=== PATIENT | female | born 1985 | race Caucasian/White ===

== ENCOUNTER 2019-03-13 06:04 | Inpatient (IN) ==
[2019-03-13] MEDS ORDERED: PENICILLIN G POTASSIUM 5 MILLIONUNT in DEXTROSE 5 % IN WATER 100 ML IV ONE ×2 (06:14)
[2019-03-13] MEDS ORDERED: RINGER'S SOLUTION,LACTATED 1,000 ML IV ONE (06:14)
[2019-03-13] MEDS ORDERED: OXYTOCIN/DEXTROSE 5%-WATER 30 UNITS/500 ML BAG IV ONE (06:14)
[2019-03-13] MEDS ORDERED: LIDOCAINE HCL 50 ML VIAL PERI PRN (06:14)
[2019-03-13] MEDS ORDERED: NALBUPHINE HCL 10 MG/ML AMPUL IV PRN ×2 (06:14)
[2019-03-13] MEDS ORDERED: ONDANSETRON 4 MG TAB.RAPDIS PO PRN (06:14)
[2019-03-13 06:55] LABS: Cocaine Ur Negative (NEGATIVE); Urine Barbiturate Negative (NEGATIVE); Urine Benzodiazepines Negative (NEGATIVE); Urine Opiates Negative (NEGATIVE); Urine PCP Negative (NEGATIVE); Urine THC Negative (NEGATIVE)
[2019-03-13] MEDS: RINGER'S SOLUTION,LACTATED 1,000 ML IV PRN ×3 (07:31→22:40)
--- NOTE | 2019-03-13 08:22 | HP ---
Chief Complaint - Chief Complaint Date of Service: 03/13/19 Time of Service: 08:16 Chief Complaint: Labor induction History of Present Illness: The patient is a 33 year old @ 39w 0d who presents to labor and delivery for an elective IOL. She denies vb or lof. Fetus is active. Medical History (Updated 03/03/19 @ 15:57 by Glo Sandoval MD) Depression GERD (gastroesophageal reflux disease) Genital herpes Migraine headache with aura Sleep disorder Abnormal Pap smear of cervix IUD migration Onset Date: ~02/24/14 removal of migrated IUD Seizure disorder during , Surgical History: Surgical History (Updated 08/14/18 @ 15:44 by Geni Arellano LPN) History of colposcopy Onset Date: ~05/02/16 05/02/16, 05/25, 11/23 History of dilation and curettage Onset Date: ~02/24/14 History of hysteroscopy Onset Date: ~02/24/14 History of surgery on arm Onset Date: ~1995 Family History: Family History (Updated 08/14/18 @ 15:47 by Geni Arellano LPN) Mother Hypothyroidism Father Diabetes Grandmother Breast cancer Social History: (Last Updated 03/10/19 @ 16:01 by Glo Sandoval MD) Social History: Marital status: Single household members: significant other, children current occupational status: employed current occupation: [employer] current occupational exposures/hazards: No Highest education level completed: some college, no degree Service: No Tobacco: Smoking Status: Never smoker Alcohol: alcohol intake: former Substance Use: substance use type: does not use Dietary Habits: caffeine: Yes caffeine comment: 1 daily Type: carbonated beverages Review Of Systems (GEN) - Review of Systems Generalized/Overall Review: Present: No Symptoms Reported Misc: All systems neg except as marked Immunizations: IMMUNIZATION HX Immunizations Up to Date Yes History of Influenza Vaccine No Hx Pneumococcal Vaccination No Allergies/Adverse Reactions: Allergies Allergy/AdvReac Type Severity Reaction Status Date / Time acetaminophen [From Vicodin] AdvReac Mild Nausea Verified 03/10/19 15:35 hydrocodone bitartrate AdvReac Mild Nausea Verified 03/13/19 06:16 [From Vicodin] Exam - Exam Vital Signs: 35.7 Celcius 80 16 123/75 98% RA Constitutional: Present: Alert, Oriented x3, Cooperative, No distress Respiratory: Present: lungs clear, normal breath sounds Cardiovascular/Chest: Present: regular rate, rhythm, no murmur Abdomen: Present: soft, nontender, nondistended Extremity: Present: non-tender, no calf tenderness Skin Exam: Present: normal color, warm/dry, no cyanosis Appearance: Present: appropriate appearance Eye contact: Present: cooperative Thoughts: Present: normal thought pattern Diagnostic Studies: Laboratory Results Negative (NEGATIVE) 03/13/19 06:34 Negative (NEGATIVE) 03/13/19 06:34 Ur Phencyclidine Scrn Negative (NEGATIVE) 03/13/19 06:34 Urine Amphetamine Negative (NEGATIVE) 03/13/19 06:34 U Benzodiazepines Scrn Negative (NEGATIVE) 03/13/19 06:34 Negative (NEGATIVE) 03/13/19 06:34 Negative (NEGATIVE) 03/13/19 06:34 Blood Type B Positive 03/13/19 06:20 Antibody Screen Negative 03/13/19 06:20 Assessment/Plan - Narrative Narrative: 33 year old @ 39w 0d here for elective IOL Pitocin started. AROM when able GBS bacteriuria: intrapartum GBS prophylaxis
[2019-03-13] MEDS: PENICILLIN G POTASSIUM 2.5 MILLIONUNT in DEXTROSE 5 % IN WATER 100 ML IV SCH ×8 (11:26→23:34)
[2019-03-13] MEDS ORDERED: ONDANSETRON HCL/PF 2 MG/ML VIAL IV PRN (11:46)
[2019-03-13] MEDS ORDERED: NALOXONE HCL 1 MG/1 ML SYRG IV PRN (11:46)
[2019-03-13] MEDS ORDERED: fentaNYL CITRATE/PF 50 MCG/ML AMPUL IT SCH (12:00)
--- NOTE | 2019-03-13 12:54 | ANES ---
Anesthesia Pre Procedure Eval Vitals/Labs: Last Vital Signs Temp 36.2 C 03/13/19 11:44 Pulse 88 03/13/19 11:44 Resp 16 03/13/19 11:44 BP 128/77 03/13/19 11:44 Pulse Ox 99 03/13/19 11:44 Allergies/Adverse Reactions: Allergies Allergy/AdvReac Type Severity Reaction Status Date / Time acetaminophen [From Vicodin] AdvReac Mild Nausea Verified 03/10/19 15:35 hydrocodone bitartrate AdvReac Mild Nausea Verified 03/13/19 06:16 [From Vicodin] - Planned Procedure Planned Procedure: ELECTIVE INDUCTION/39 WEEKS Medication List Reviewed:: Yes Allergies Verified: Yes Medical History (Updated 03/13/19 @ 08:22 by Glo Sandoval MD) Depression GERD (gastroesophageal reflux disease) Genital herpes Migraine headache with aura Sleep disorder Abnormal Pap smear of cervix IUD migration Onset Date: ~02/24/14 removal of migrated IUD Seizure disorder during , Surgical History (Updated 03/13/19 @ 08:22 by Glo Sandoval MD) History of colposcopy Onset Date: ~05/02/16 05/02/16, 05/25, 11/23 History of dilation and curettage Onset Date: ~02/24/14 History of hysteroscopy Onset Date: ~02/24/14 History of surgery on arm Onset Date: ~1995 Family History (Updated 08/14/18 @ 15:47 by Geni Arellano LPN) Mother Hypothyroidism Father Diabetes Grandmother Breast cancer - Family Anesthesia History Family History:: no untoward family reactions to anesthesia, no familial bleeding tendencies, no family history of clotting disorders, no family history of premature - Airway/Neck/Teeth Within Normal Limits:: Yes Teeth Condition: intact Neck Exam: full range of motion Mallampatti Score: 2 Thyromental (T-M) distance: > 6 cm Mandibulo Hyoid distance: > 3 cm - Respiratory Respiratory Physical: lungs clear Smoking Status: Never smoker Sleep Apnea currently treated: No Sleep Apnea by current assessment: No - Cardiovascular Tolerate Activity: Fair Heart Sounds: S1 & S2 - Anesthesia Assessment and Plan ASA Class: PS, II, E Anesthesia Type Plan: Epidural - CSE for labor analgesia
--- NOTE | 2019-03-13 13:14 | ANES ---
Post Anesthesia Discharge - Transfer of Care Transfer of Care handoff given to nurse: Yes - Discharge from PACU Discharge from PACU when meets criteria: Yes - Comfortable in ASU.
--- NOTE | 2019-03-13 13:15 | ANES ---
Anesthesia Procedure Note Procedure Note: ANESTHESIA PROCEDURE NOTE Date of Procedure: [03/13/2019 Time of procedure: 12:50 PM. Performed by: MAYURI Laboy CRNA, MSN Scrub Nurse: Diya Moore RN. Preprocedure diagnosis: Active labor, labor pain. Post procedure diagnosis: Same. Procedure:Epidural for labor analgesia L3-4. Indications: Labor pain. Findings: See below. Details of the procedure: The patient was placed on the side of the bed in sitting positionand prepped with DuraPrep then draped in a sterile fashion. Lidocaine 1% was infiltrated to the skin and subcutaneous tissues at the level of the L3-4 interspace. An 18-gauge Touhy needle was used to approach the epidural space with loss of resistance technique. Once loss of resistance was achieved a 27-gauge spinal needle was passed through the epidural needle and CSF was contacted. After CSF returned, 20 mcg of fentanyl was injected in the spinal needle was removed the epidural catheter was then threaded approximately 4 cm in the epidural needle was removed. The catheter was taped in place and after careful aspiration 3 mL of 1.5% lidocaine with 1-200,000 epinephrine was injected without change in maternal heart rate or sensorium. . EBL: Minimal. Fluids: N/A. Specimen: N/A. Post procedure condition: The patient tolerated the procedure well with good relief. No complications were noted. Thank you for this consultation. Niko Jurado CRNA, MAYURI, MSN
--- NOTE | 2019-03-13 13:26 | ANES ---
Post Anesthesia Assessment - Vital Signs Vitals: Last Vital Signs Temp 36.2 C 03/13/19 11:44 Pulse 88 03/13/19 11:44 Resp 16 03/13/19 11:44 BP 128/77 03/13/19 11:44 Pulse Ox 99 03/13/19 11:44 Airway Patency: Normal - Mental Status Level Of Consciousness: Awake, Alert, Appropriate - Pain Level Pain Score: 0 - N/V Assessment Nausea/Vomiting Presence: None Dehydration:: No
[2019-03-13] MEDS: BUPIVACAINE HCL/0.9 % NACL/PF 250 ML EP PRN ×2 (13:38→23:56)
--- NOTE | 2019-03-13 17:49 | PN ---
Progess Note - Interim Date: 03/13/19 Time: 17:47 Narrative: 03/13/19 17:47 Patient comfortable with epidural cvx is 3.5-4/60/-2 AROM for clear fluid ctx q 2-4 minutes FHT cat 1 Pitocin currently at 12 milliunits/min
[2019-03-14] MEDS ORDERED: MISOPROSTOL 200 MCG TABLET RC ONE (02:39)
[2019-03-14] MEDS ORDERED: OXYTOCIN/DEXTROSE 5%-WATER 30 UNITS/500 ML BAG IV ONE (03:28)
[2019-03-14] MEDS ORDERED: HYDROCORTISONE 30 APPL TUBE TP PRN (03:28)
[2019-03-14] MEDS ORDERED: BENZOCAINE/MENTHOL 81 SPRAY CAN TP PRN (03:28)
[2019-03-14] MEDS ORDERED: IBUPROFEN 800 MG TABLET PO PRN (03:28)
[2019-03-14] MEDS ORDERED: diphenhydrAMINE HCL 25 MG CAPSULE PO PRN (03:28)
[2019-03-14] MEDS ORDERED: oxyCODONE HCL/ACETAMINOPHEN 1 TAB TABLET PO PRN (03:28)
[2019-03-14] MEDS ORDERED: GLYCERIN/WITCH HAZEL LEAF 40 APPL BOX TP PRN (03:28)
[2019-03-14] MEDS ORDERED: SENNOSIDES 8.6 MG TABLET PO PRN (03:28)
[2019-03-14] MEDS ORDERED: BISACODYL 10 MG SUPP.RECT RC PRN (03:28)
--- NOTE | 2019-03-14 03:28 | OR ---
Operative Report - Dictated Report Narrative: Date of delivery: 03/14/2019 Time of delivery: 233 Gender: male APGARS: 8/9 weight: 4149 grams Procedure: VAVD Description of the procedure: The patient presented to L&D for an elective IOL. She progressed to complete dilation. She delivered a viable male on the direct OA position. It was a vacuum assisted delivery. There was only one pop off the vacuum. The total application time for the vacuum was There was a loose nuchal cord which was reduced. The shoulders delivered without difficulty followed by the rest of the body. The cord was clamped and cut. The placenta was delivered by expression and appeared intact. Following delivery of the placenta, heavy vaginal bleeding ensued. The patient received cytotec, methergine, and hemabate. A Lau catheter was placed in the uterus and 60 mL of saline were injected. The Lau was connected to a bag. A Lau catheter was placed in the bladder. EBL was 1000 mL. The patient is tachycardic and thus 2 units of PRBCs were ordered. A second degree perineal laceration was repaired in the standard fashion using 2-0 vicryl. EBL: 1000 mL Lacerations: 2nd degree perineal laceration Complications: none History for MU Definition: * The number of deliveries resulting in a live the patient experienced prior to current hospitalization * The previous delivery of live twins or any live multiple gestation is considered one live event. *If primagravida or nulliparous is documented select zero for the number of previous live births. Live Events: 2
[2019-03-14] MEDS ORDERED: METHYLERGONOVINE MALEATE 0.2 MG/ML AMPUL IM ONE (03:57)
[2019-03-14] MEDS ORDERED: CARBOPROST TROMETHAMINE 250 MCG/ML AMPUL IM ONE (03:58)
[2019-03-14] MEDS ORDERED: ceFAZolin SODIUM/DEXTROSE,ISO 2 GM/50 ML BAG IV SCH (04:15)
[2019-03-14] MEDS: oxyCODONE HCL/ACETAMINOPHEN 1 TAB TABLET PO PRN ×3 (05:18→21:59)
[2019-03-14 09:05] LABS: Hematocrit 31.2 % (37.0-47.0); Hemoglobin 10.2 gm/dL (12.5-16.0); Mean Cell Volume 78.8 fl (78-100); Mean Corpuscular Hemoglobin 25.8 pg (27-31); Mean Corpuscular Hgb Conc 32.7 g/dl (32-36); Mean Platelet Volume 10.6 fl (8-12.5); Neutrophil # 19.1 K/mm3 (1.3-6.0); Platelet Count 177 K/mm3 (150-450); Red Blood Count 3.96 M/mm3 (4.2-5.4); Red Cell Distribution Width 15.5 % (11.5-14.0); White Blood Count 21.2 K/mm3 (4.0-10.5)
--- NOTE | 2019-03-14 10:36 | PN ---
Subjective - Date and Time Seen Date: 03/14/19 Time: 10:33 Subjective Narrative: Patient without complaints Objective Objective Narrative: See vital signs - Review of Systems Generalized/Overall Review: Reports: No Symptoms Reported Misc: All systems neg except as marked - Vitals Vitals: Last Vital Signs Temp 36.7 C 03/14/19 08:56 Pulse 97 03/14/19 08:56 Resp 20 03/14/19 08:56 BP 125/67 03/14/19 08:56 Pulse Ox 97 03/14/19 08:56 - Abnormal Lab Findings Abnormal Lab Findings: Abnormal Lab Results 03/13/19 03/14/19 Range/Units 06:20 09:00 WBC 21.2 H (4.0-10.5) K/mm3 RBC 3.96 L (4.2-5.4) M/mm3 Hgb 10.2 L (12.5-16.0) gm/dL Hct 31.2 L (37.0-47.0) % MCH 25.8 L (27-31) pg RDW 15.5 H (11.5-14.0) % Immature Gran % (Auto) 1.20 H (0.001-0.429) % Immature Gran # (Auto) 0.25 H (0.000-0.0310) K/mm3 Neutrophils % 90.0 H (42-75.0) % Lymphocytes % 4.9 L (20-51) % Neutrophils # 19.1 H (1.3-6.0) K/mm3 Lymphocytes # 1.04 L (1.5-3.5) k/mm3 Crossmatch See Detail - Exam Constitutional: Present: Alert, Oriented x3, Cooperative, No distress Abdomen: Present: soft, nontender, nondistended - fundus is firm Extremity: Present: non-tender, no calf tenderness Skin Exam: Present: normal color, warm/dry, no cyanosis Appearance: Present: appropriate appearance Eye contact: Present: cooperative Thoughts: Present: normal thought pattern Cauti Physician Documentation - Urinary Catheter Management Urethral (Lau) Urethral Indwelling: Yes Date of Insertion: 03/13/19 Time of Insertion: 13:56 Assessment/Plan Plan Narrative: PPD 0 s/p VAVD The patient received 2 units of PRBCs due to hemorrhage. Post transfusion hemoglobin is 10. Discontinue Lau Continue intrauterine balloon. Withdraw 10 mL/hour from the uterine balloon to ensure bleeding has stopped prior to removing the balloon - Problems/Diagnosis (1) hemorrhage Problem: Acute
[2019-03-14] MEDS: DOCUSATE SODIUM 100 MG CAPSULE PO SCH ×2 (20:13→22:00)
--- NOTE | 2019-03-15 09:33 | PN ---
Subjective - Date and Time Seen Date: 03/15/19 Time: 09:32 Subjective Narrative: Patient without complaints Objective Objective Narrative: See vital signs - Review of Systems Generalized/Overall Review: Reports: No Symptoms Reported Misc: All systems neg except as marked - Vitals Vitals: Last Vital Signs Temp 36.7 C 03/15/19 02:48 Pulse 89 03/15/19 02:48 Resp 18 03/15/19 02:48 BP 122/74 03/15/19 02:48 Pulse Ox 97 03/15/19 02:48 - Exam Constitutional: Present: Alert, Oriented x3, Cooperative, No distress Abdomen: Present: soft, nontender, nondistended - fundus is firm /Rectal: Present: Exam deferred Extremity: Present: non-tender, no calf tenderness Skin Exam: Present: normal color, warm/dry, no cyanosis Appearance: Present: appropriate appearance Eye contact: Present: cooperative Thoughts: Present: normal thought pattern Cauti Physician Documentation - Urinary Catheter Management Urethral (Lau) Urethral Indwelling: Yes Date of Insertion: 03/13/19 Time of Insertion: 14:00 Date of Removal: 03/14/19 Time of Removal: 10:30 Assessment/Plan Plan Narrative: PPD 1 s/p Doing well PPH: normal bleeding now Discharge tomorrow - Problems/Diagnosis (1) hemorrhage Problem: Acute
[2019-03-15] MEDS: DOCUSATE SODIUM 100 MG CAPSULE PO SCH ×2 (09:45→20:02)
[2019-03-16] MEDS: oxyCODONE HCL/ACETAMINOPHEN 1 TAB TABLET PO PRN (01:01)
[2019-03-16] MEDS ORDERED: MEDROXYPROGESTERONE ACET 150 MG/ML SYRG IM ONE (08:08)
--- NOTE | 2019-03-16 08:08 | PN ---
Subjective - Date and Time Seen Date: 03/16/19 Time: 08:07 Subjective Narrative: Patient without complaints Objective Objective Narrative: See vital signs - Review of Systems Generalized/Overall Review: Reports: No Symptoms Reported Misc: All systems neg except as marked - Vitals Vitals: Last Vital Signs Temp 37.0 C 03/16/19 01:07 Pulse 93 03/16/19 01:07 Resp 14 03/16/19 01:07 BP 121/91 H 03/16/19 01:07 Pulse Ox 98 03/16/19 01:07 - Exam Constitutional: Present: Alert, Oriented x3, Cooperative, No distress Abdomen: Present: soft, nontender, nondistended - fundus is firm Extremity: Present: non-tender, no calf tenderness Skin Exam: Present: normal color, warm/dry, no cyanosis Appearance: Present: appropriate appearance Eye contact: Present: cooperative Thoughts: Present: normal thought pattern Cauti Physician Documentation - Urinary Catheter Management Urethral (Lau) Urethral Indwelling: No Date of Insertion: 03/13/19 Time of Insertion: 14:00 Date of Removal: 03/14/19 Time of Removal: 10:30 Assessment/Plan Plan Narrative: PPD 2 s/p VAVD Doing well Discharge today Depo-Provera prior to discharge - Problems/Diagnosis (1) hemorrhage Problem: Acute
[2019-03-16 08:34] VITALS: BP 121/83
[2019-03-16] MEDS: DOCUSATE SODIUM 100 MG CAPSULE PO SCH (09:07)
== END 2019-03-16 11:00 | disposition home or self-care (01) | DRG 768 ==
LOC: OB 06:04
PROVIDERS: ADMIT Obstetrics & Gynecology; ATTEND Obstetrics & Gynecology
CPT/HCPCS: 59025; 80307; 85025; 86850; P9016